=== PATIENT | female | born 2000 | race Caucasian/White ===

== ENCOUNTER 2022-07-06 03:37 | Emergency (ER) | payer BC, SELFPAY ==
[2022-07-06 03:38] VITALS: BP 145/91; PULSE 79; RESP 17; TEMP 36.6; O2SAT 96
[2022-07-06 03:39] VITALS: BP 145/91; PULSE 79; RESP 17; TEMP 36.6; O2SAT 96; BMI 33.7
--- NOTE | 2022-07-06 03:48 | ED.VIS.GI ---
HPI HPI - GI History of Present Illness Chief Complaint: Abd Pain Detail of Chief Complaint: For abdominal pain that awoke patient from sleep Informant: patient Abdominal Pain/Flank Pain Onset: Today and Hours Context: Sudden Onset Timing: Continuous and Waxes and wanes Quality: Aching Location: Epigastric and RUQ Current Severity: Mild Maximum Severity: Severe Worsened by: Food (Patient had pizza test evening.) and Nothing Relieved by: Nothing Nausea/Vomiting/Emesis GI Symptom: Positive for Nausea; Negative for Vomiting Onset: Hours Diarrhea/Melena/Hematochezia GI Symptom: Positive for Diarrhea; Negative for Melena or Hematochezia Onset: Month(s) Stool Quality: Positive for Loose and Watery; Negative for Black or Maroon Severity: Moderate Associated Symptoms Associated Symptoms: Negative for Dysuria, Frequency, Hematuria or Urgency LMP: Approximately 3 weeks ago. Patient is taking control pills Narrative Narrative: Patient is a 22-year-old female who presents with epigastric right upper quadrant pain that radiates through to the intrascapular region that awoke her from sleep. She had pizza last evening. She was seen at outside facility August 2021 and diagnosed with cholelithiasis. Because she had chronic diarrhea she was seen by a rn clinical documentation located in [place]. She underwent colonoscopy because of the diarrhea. No abnormality was noted. She has not been referred to a surgeon regarding the cholelithiasis. She denies fever, chills night sweats. She does report mild nasal congestion. Otherwise no other upper respiratory infectious symptoms. She denies chest discomfort. She denies dysuria, frequency, urgency or hematuria. There is no history of renal or ureteral lithiasis. Prior similar symptoms: Yes Recent Illness/Hospitalization: No PFSH PFSH Medical History no medical history no medical history (There is a history of cholelithiasis) Home Medications hydrocodone-acetaminophen 5-325mg 5mg-325mg 1 tab PO Q6H PRN PRN Pain 3 days #10 TABLETS 07/06/22 [Rx Last Taken Unknown] norgestimate 0.25 mg-ethinyl estradiol 35 mcg tablet (Bel) 1 tab DAILY 07/06/22 [History Last Taken Unknown] Allergy/AdvReac Type Severity Reaction Status Date / Time No Known Allergies Allergy Verified 07/06/22 03:45 Surgical History no surgical history no surgical history Social History (Updated 07/06/22 @ 03:[address] Tenzin Joel MD) household members: significant other Smoking Status: Current some day smoker tobacco type: e-cigarettes alcohol intake: never substance use type: marijuana ROS ROS ED Constitutional Constitutional ED: Denies chills, fever(s), subjective or sweats ENT ENT ED: Denies ear pain, rhinorrhea or sore throat Cardiovascular Cardiovascular: Denies chest pain, palpitations or racing heartbeat Respiratory/Chest Respiratory/Chest: Denies cough, dyspnea or dyspnea on exertion Gastrointestinal Gastrointestinal: Reports abdominal pain and nausea; Denies constipation, diarrhea, melena or vomiting Genitourinary Genitourinary ED: Reports LMP (females 10-50) Details: Comment: (Approximately 3 weeks ago. Patient states she has not missed any of her control doses and has not varied the time by more than 2 hours.); Denies dysuria, hematuria or urinary frequency Musculoskeletal Musculoskeletal: Reports back pain; Denies arthralgias, myalgias or neck pain Integumentary Denies Abrasions or rash Neurologic Neurologic: Denies headache(s), paresthesias or weakness Endocrine Endocrinology: Denies polydipsia, polyphagia or polyuria Hematologic/Lymphatic Hematologic/Lymphatic: Denies easy bleeding, easy bruising or lymphadenopathy EXAM Physical Exam Const Vital Signs: 07/06/22 03:38 07/06/22 03:39 Temperature 97.9 F 97.9 F Temperature Source Temporal Temporal Pulse Rate 79 79 Respiratory Rate 17 17 Blood Pressure 145/91 H 145/91 H Blood Pressure Mean 109 109 Pulse Ox 96 96 Oxygen Delivery Method Room Air Room Air Positive well nourished, well developed and obese; Negative for cachectic, contractures or unkempt General Appearance ED: well developed and NAD; Negative for unkempt, cachectic, contractures or pallor Nutritional Appearance: obese; Negative for cachectic HEENT Reports TM's clear and dry mucous membranes HEENT Narrative: Ears normal. External auditory canal normal. Nares patent. Uvula midline. There is no erythema exudate the posterior pharynx. normocephalic and atraumatic Tympanic Membrane ED: Yes TM's clear Mouth ED: Yes dry mucous membranes Mouth: dry mucous membranes Eyes PERRL and EOMs intact bilaterally General Eye ED: Negative for pale conjunctiva or scleral icterus Neck no lymphadenopathy, supple and no JVD Resp normal respiratory effort and clear to auscultation bilaterally Cardio regular rate, regular rhythm, S1 normal heart sound, S2 normal heart sound and no murmurs GI non-distended and no masses; Negative for non-tender Auscultation: hypoactive bowel sounds Palpation: soft and tender RLQ, McBurney's point and Philip's sign (Philip sign is equivocal.) Back/Spine no CVA tenderness Thoracic Spine / Upper Back: Negative for thoracic spinal tenderness Lumbar Spine / Lower Back: Negative for lumbar spinal tenderness Extremity full ROM General Extremety ED: Negative for edema or tenderness General Extremity: Negative for edema Neuro CN's II-XII intact bilaterally, moves all extremities and no sensory deficits noted Sensorium / Orientation: alert Psych mental status grossly normal and thought process normal Appearance: Negative for unkempt Skin no wounds General Skin Exam: Negative for jaundice or pallor MDM MDM MDM Narrative Medical decision making narrative: With history of cholelithiasis and the fact that she was awakened from sleep with pain rating to her back after having pizza for dinner suspect this is due to biliary colic. She was medicated with IV Toradol and Zofran for her pain and nausea. Blood work was obtained to determine if patient can be discharged to home. Also request for medical records from [facility] was obtained. Patient was reassessed at 0449. Patient does report some improvement. She was informed that her white count has returned is unremarkable. Still awaiting other blood results. Lab Data Attestation: I reviewed the patient's lab results. Lab results narrative: CBC, hepatic and lipase are unremarkable. Patient was referred to surgeon on-call. She was discharged to home with appropriate home-going instructions Labs: Laboratory Results - last 24 hr 07/06/22 07/06/22 03:50 03:50 WBC 8.8 RBC 4.51 Hgb 13.0 Hct 38.5 MCV 85.4 MCH 28.8 MCHC 33.8 RDW Std Deviation 38.5 RDW Coeff of Sharri 12.6 Plt Count 274 MPV 9.8 Immature Gran % (Auto) 0.200 Neut % (Auto) 57.4 Lymph % (Auto) 29.5 [place] % (Auto) 9.1 Eos % (Auto) 3.3 Baso % (Auto) 0.5 Absolute Neuts (auto) 5.1 Absolute Lymphs (auto) 2.60 Nucleated RBC % 0 Total Bilirubin 0.20 Direct Bilirubin < 0.05 AST 14 L ALT 17 Alkaline Phosphatase 70 Total Protein 7.2 Albumin 3.1 L Globulin 4.1 Lipase 132 Discharge Plan Triage Chief Complaint: Abd Pain ED Provider: Tenzin Joel Dx/Rx/DC Orders Clinical Impression: Biliary colic symptom, Cholelithiasis Instructions: ED Gallstones with Biliary Colic Prescriptions: New hydrocodone-acetaminophen [hydrocodone-acetaminophen] 5-325 mg tablet 1 tab PO Q6H PRN PRN (Reason: Pain) 3 Days Qty: 10 0RF No Action norgestimate-ethinyl estradiol [Bel] 0.25-35 mg-mcg tablet 1 tab DAILY Primary Care Provider: Jasmin Harrison Referrals: Torres Miranda MD [Med Staff - Active Staff] - 5-7 Days Jasmin Harrison MD [Primary Care Provider] - Activity Restrictions/Additional Instructions: 1. Call Dr. Torres Cadena's office for follow-up 2. You should not eat greasy or fried foods. Disposition Disposition: Home, Self Care
[2022-07-06] MEDS: Ondansetron 4 MG/2 ML Vial IV (03:57)
[2022-07-06] MEDS: Ketorolac 15 MG/ML Vial IV (03:57)
[2022-07-06] MEDS: 0.9% Normal Saline 1,000 ML 125 ML IV (03:57)
[2022-07-06 04:06] LABS: Absolute Neutrophil Count 5.1 X10^3/uL (2.0-7.7); Basophil# 0.04 X10^3/uL; Basophil% 0.5 % (0-1); Eosinophil# 0.29 X10^3/uL; Eosinophils% 3.3 % (0-5); Hematocrit 38.5 % (37-47); Lymphocyte % 29.5 % (19-41); Mean Corp Hgb Conc 33.8 g/dL (32-36); Mean Corpuscular Hgb 28.8 pg (27.0-32.0); Mean Corpuscular Volume 85.4 fL (81-99); Mean Platelet Vol. 9.8 fl (6.2-12.0); Monocyte% 9.1 % (0-10); NRBC Flagged by Analyzer 0 % (0-5); Neutrophil # 5.07 X10^3/uL (2.7-7.7); Neutrophil % 57.4 % (47-70); Platelet Count 274 K/mm3 (150-450); RBC Distribution Width CV 12.6 % (11.6-14.6); RBC Distribution Width SD 38.5 fl (35.1-43.9); Red Blood Count 4.51 M/mm3 (4.2-5.4); White Blood Count 8.8 K/mm3 (4.4-11.0)
[2022-07-06] MEDS: Morphine 4 MG/ML Syringe IV (05:03)
[2022-07-06 05:04] LABS: AST(SGOT) 14 U/L (15-37); Alanine Aminotransfer ALT/SGPT 17 U/L (13-56); Albumin, Serum 3.1 g/dL (3.2-5.0); Alkaline Phosphatase 70 U/L (45-117); Bilirubin, Direct < 0.05 mg/dL (0.00-0.30); Globulin 4.1 g/dL (2.2-4.2); Lipase 132 U/L (73-393); Protein, Total 7.2 g/dL (6.4-8.2)
[2022-07-06 05:39] VITALS: BP 118/74; PULSE 74; RESP 17; TEMP 36.7; O2SAT 98
== END 2022-07-06 05:40 | disposition home or self-care (01) ==
PROVIDERS: Emergency Provider Emergency Medicine; PCP Pediatrics; Visit Provider Emergency Medicine
DX: K80.70 Calculus of gallbladder and bile duct without cholecystitis without obstruction (principal); R09.81 Nasal congestion; F12.90 Cannabis use, unspecified, uncomplicated; M54.9 Dorsalgia, unspecified; K52.9 Noninfective gastroenteritis and colitis, unspecified; F17.210 Nicotine dependence, cigarettes, uncomplicated
CPT/HCPCS: 80076; 83690; 85025; 96361; 96374; 96375; 99284; J2405

== ENCOUNTER 2022-07-27 09:37 | Day surgery (SDC) | payer BC, SELFPAY ==
[2022-07-27] VITALS (7 sets, daily range): BP systolic 113–134; BP diastolic 66–89; PULSE 60–84; RESP 16; TEMP 36.5–36.8; O2SAT 98–100; BMI 33.2
--- NOTE | 2022-07-27 09:46 | EKG12_ITS ---
Test Reason : PRE-OP Blood Pressure : / mmHG Vent. Rate : 073 BPM Atrial Rate : 073 BPM P-R Int : 128 ms QRS Dur : 080 ms QT Int : 392 ms P-R-T Axes : 024 052 024 degrees QTc Int : 431 ms Normal sinus rhythm with sinus arrhythmia Normal ECG Confirmed by TORI WATKINS, AI ([id number]), material expeditor DAVIDE EDGE ([id number]) on 07/29/2022 8:16:37 AM Referred By: Freddy Burton Confirmed By:AI VALLE MD
[2022-07-27 09:59] LABS: Internal QC Validated? YES +Cl - CLEAR BKGD; Pregnancy, Urine Negative Negative
[2022-07-27] MEDS: Lactated Ringers 1,000 ML 15 ML IV ×2 (10:15→13:01)
--- NOTE | 2022-07-27 10:55 | HP.PCM_ITS ---
History and Physical Date of Service:? 07/08/22 MR#: [id number] Acct: [id number] Name:BUDDY CLEMENTS Rep #: [id number] : 2000 ? ? Provider: Dr. Freddy Burton MD Age/Sex:? 22/F ? ? Location: [facility] Status: Signed Intake Vital Signs ? 07/06/2203:39 07/08/2213:07 Height 5 ft 5 in 5 ft 3 in Weight: 203 lb 0.732 oz 194 lb 4 oz BMI 33.7 34.4 BP 145/91 H 142/99 H Blood Pressure Location ? Rt brachial Position ? Sitting Respiration 17 18 Pulse 79 84 Pulse Source ? Monitor Temp 97.9 F 97.7 F L Temp Source Temporal Temporal Pulse Oximetry (%) 96 100 Oxygen Delivery Method ? room air Intake Visit Reasons:?ED 07/06 POSSIBLE GALLSTONES Chief Complaint: Cholelithiasis Dry Box Tender Required: No Is patient in pain?: No Allergies No Known Allergies Allergy (Verified 07/08/22 13:08) Medications hydrocodone-acetaminophen 5-325mg 5mg-325mg 1 tab PO Q6H PRN PRN Pain 3 days #10 TABLETS 07/06/22 [Rx Confirmed 07/08/22] norgestimate 0.25 mg-ethinyl estradiol 35 mcg tablet (Bel) 1 tab DAILY 07/06/22 [History Confirmed 07/08/22] PFSH Medical History? Abdominal pain Cholelithiasis Diarrhea Surgical History?(Updated 07/08/22 @ 13:05 by Danika Beasley) No history of previous surgery Family History? Mother AsthmaBrother AsthmaGrandmother Arthritis Social History? household members:? significant other Smoking Status:? Current some day smoker tobacco type: e-cigarettes alcohol intake:? never substance use type:? marijuana HPI HPI HPI: BUDDY CARVER, is a 22 F who presents to the office today for who presents with complaints of right upper quadrant pain and known cholelithiasis.? They are referred for surgical consultation from Dr. Joel of emergency medicine.? Patient states that her pain started in August 2021.? She had her first ER visit around [facility] this year.? It was at this visit that she underwent right upper quadrant ultrasound that demonstrated cholelithiasis without other features concerning for cholecystitis.? Pain is described as sharp and occasionally radiates straight through to her back.? She states it is felt almost every day, but with varying intensity.? Additional symptoms include: Associated nausea but no vomiting.? She also denies any associated fever.? She endorses a history of chronic diarrhea, but is not sure if this is related to her right upper quadrant discomfort or not.? In addition to her 2 ER visits, Miss Carver underwent EGD and colonoscopy at outside facility.? She states aside from some small hemorrhoids noted on the colonoscopy both exams were entirely normal.? She also had some part of this work-up included some preprocedural stool studies which detected some inflammation, but were otherwise unrevealing.? With uncontrolled gastroesophageal reflux in the differential, Miss Carver states that she was prescribed Prilosec for several months.? She declares she took this faithfully every day, but did not experience any improvement of her symptoms. ?She describes the scenario around her most recent ER visit here on 07/06/2022; stating that she was awoken out of sleep with pain.? The night prior she co nfirms a dinner of pizza.? She states this was the worst her pain is ever been.? It only improved minimally with pain medications from the ER.? She was advised to refrain from any greasy foods and this seems to have worked to minimize some of her symptoms. Patient has a family history of no significant GI diagnoses, but her mother did require gallbladder removal. ROS General General: No weight change, appetite, fatigue, colon cancer, breast cancer or weakness HEENT HEENT: No difficulty swallowing, eye injury, eye surgery, swollen glands or hoarseness Endo Endocrine: No thyroid disease, diabetes mellitus, thyroid cancer, Hair loss, heat intolerance or cold intolerance Skin Skin: No rash or changing moles Breast Breast: No left breast lump, right breast lump, nipple discharge, breast pain, abnormal mammogram, abnormal US or breast enlargement Musc Musculoskeletal: No back problems, arthritis, rheumatoid arthritis, gout or joint pain Cardio Cardiovascular: No murmur, pacemaker, heart disease, atrial fibrillation, high blood pressure, heart attack, heart stent, palpitations, shortness of breat with exertion or chest pain Psych Psychiatric: No depression, anxiety or hearing voices Resp Respiratory: No shortness of breath, No sleep apnea, No cough, No COPD, No asthma, No emphysema and No wheezing Gastro Gastrointestinal: Yes abdominal pain, Yes nausea or vomiting, Yes diarrhea, No constipation, No blood in stool, Yes acid reflux, Yes hemorrhoids, No ulcers, Yes gallbladder problem and No black,tarry stools Bernardo Hematologic: No blood thinners, No blood disorders, No bleeding, No anemia and No blood clots Neuro Neurologic: No system reviewed and no additional complaints, except as documented, No as per HPI, No abnormal gait, No abnormal hearing, No abnormal movements, No abnormal speech, No behavioral changes, No burning sensations, No confusion, No convulsions, No disequilibrium, No dizziness, No localized weakness, No frequent falls, No headache(s), No lack of coordination, No loss of vision, No memory loss, No numbness, No other visual disturbances, No radicular pain, No restless legs, No sensory deficit, No syncope, No tingling, No tremor(s), No weakness and No other Exam Const General: cooperative, healthy appearing, comfortable and no acute distress Nutritional Appearance: well nourished Orientation: alert, awake and oriented x3 Resp Effort & Inspection: normal respiratory effort Auscultation: clear to auscultation bilaterally, no rales, no rhonchi and no wheezes Cardio Rate: regular rate Rhythm: regular rhythm Heart Sounds: S1 normal and S2 normal GI Inspection: non-distended and no scars Palpation: soft, no hernias and tender in the epigastrum and in the RUQ; Philip's sign negative Assessment and Plan Assessment and Plan (1) Biliary colic symptom: ?Status:?Acute ?Comment: This is a 22-year-old, otherwise healthy, female who presents with a nearly 1 year history of chronic right upper quadrant pain that is occasionally associated with nausea.? She has undergone negative work-ups for gastroesophageal reflux disease and colonoscopy for chronic diarrhea?both without relief of her symptoms.? Further, she has been on medications to help regulate her acid production and diarrhea and neither of these have helped.? She relates that her pain primarily begins early in the mornings, but is unable to articulate if there are any trigger foods.? On exam her pain is primarily in the epigastrium, but there is some discomfort in the right upper quadrant as well.? Given the regional distribution of her pain on exam, and her somewhat vague history, I have shared with her that I am not fully convinced that removal of her gallbladder will ameliorate her symptoms.? I have shared with her (as she states has been shared with her previously) that this differential also includes irritable bowel syndrome.? Still, given that she has undergone unrevealing examinations with endoscopy and had refractory symptoms to standard medications I find it reasonable to pursue cholecystectomy.? I have cautioned her that removal of the gallbladder could lead to worsening of her diarrheal complaints?at least in a transitory fashion.? At this point, patient is inclined to pursue surgery as she is frustrated with the lack of progress she has had thus far.? Therefore we will plan for minimally invasive cholecystectomy with possible plan geography at first mutually available date.? Patient has been advised to plan for a outpatient procedure and postoperative expectations were reviewed as well. ?Plan: ? Minimally invasive cholecystectomy with possible cholangiography at first mutually available date (2) Cholelithiasis: ?Status:?Acute ?Comment: Patient with symptomatic cholelithiasis per history and exam. ?Plan: ? As above, pursuing noninvasive cholecystectomy with possible cholangiography at first mutual available date. I have re-examined the patient. There are no clinical changes since date of exam. Plan to proceed with laparoscopic cholecystectomy under general anesthesia as stated above. Postoperative expectations/restrictions were reviewed with patient and her significant other in detail. They expressed understanding and acceptance of this information.
[2022-07-27 10:57] LABS: ALB/GLOB Ratio 0.9 RATIO (0.9-2.4); AST(SGOT) 14 U/L (15-37); Alanine Aminotransfer ALT/SGPT 17 U/L (13-56); Albumin, Serum 3.2 g/dL (3.2-5.0); Alkaline Phosphatase 54 U/L (45-117); Anion Gap 5 (5-15); BUN 7 mg/dL (7-18); BUN/Creat Ratio 11.3 RATIO (10-20); Calcium,Total 8.5 mg/dL (8.5-10.1); Chloride 113 mmol/L (98-107); Creatinine, Serum 0.62 mg/dL (0.55-1.02); EST Glomerular Filtration Rate 130 mL/min (>60); Est Glom Filt Rate - Afr Amer 157 mL/min (>60); Estimated Creatinine Clearance 119.73 ml/min; Globulin 3.6 g/dL (2.2-4.2); Glucose 84 mg/dL (74-106); Potassium 3.6 mmol/L (3.5-5.1); Protein, Total 6.8 g/dL (6.4-8.2); Sodium Level 142 mmol/L (136-145)
[2022-07-27] MEDS: Cefazolin 2 GM in 0.9% Normal Saline 100 ML IV (10:57)
--- NOTE | 2022-07-27 11:00 | GALL_PTH ---
PATIENT: BUDDY MAHMOOD [place] [facility] [id number] AGE/SX: 22/F ROOM: RE07/27/[address]: Dr. Freddy Burton MD : 2000 BED: DIS: 07/27/2022 SPEC #: [id number] RECD: 07/27/22 12:59 STATUS: PIETRO MERRILL #: [id number] LAKESHIA: 07/27/22 11:[address]: Freddy Burton DEPT: SURGICAL PATHOLOGY RECD BY: Maxi Winston ENTERED: 07/28/22 08:10 SP TYPE: KEYONA MALLOY DR: Dr. Jasmin Harrison MD Tissues: Gallbladder, NOS Procedures: Surgery Specimen Level III HEADER OPERATION: Laparoscopic cholecystectomy PRE-OP DIAGNOSIS: Biliary colic symptom, cholelithiasis TISSUE SUBMITTED: Gallbladder MICROSCOPIC DIAGNOSIS Gallbladder, cholecystectomy: Cholesterolosis, chronic cholecystitis and cholelithiasis. AM:cece 07/29/2022 MICROSCOPIC DESCRIPTION Slides are reviewed. GROSS DESCRIPTION Received is one container labeled with the patient's name and designated gallbladder. The specimen consists of a gallbladder measuring 11 x 3 x 3 cm. The external surface is smooth and glistening. Focally, it is granular, hemorrhagic and contains cautery artifact. The lumen of the gallbladder contains green mucoid bile and multiple chalky, yellow, mulberry-shaped calculi averaging 1.5 cm in greatest dimension. The mucosa is bile-stained and without any mass lesions. The gallbladder wall averages 0.2 cm in thickness and is free of mass lesions. Upper Cutter sections of the gallbladder and the cystic duct at margin of resection are submitted in one cassette. / AM:cece 07/28/2022 TC:3 CPT: 90666
[2022-07-27] MEDS: Bupivacaine 0.25% 30 ML Vial (11:19)
--- NOTE | 2022-07-27 12:19 | OP.PCM_ITS ---
Report of Operation Date of Procedure: 07/27/22 Pre-Operative Diagnosis: Somatic cholelithiasis/biliary colic Post-Operative Diagnosis: Same Surgery/Procedure Performed:: Laparoscopic cholecystectomy Description of Surgical Findings:: ? Gallbladder with normal anatomy including single cystic duct and cystic artery ? Minimal inflammatory change to the gallbladder approaching the infundibulum Surgeon: Freddy Burton recyclable materials distributor: Anne-Marie Riley Type of Anesthesia: General/Supplemental Anesthesiologist: Ruiz Velazquez Specimen's removed: Gallbladder Estimated Blood Loss (mL): 20 Description of Procedure: After proper identification in the preoperative holding area the patient was brought to the operating room where positioned supine on the operating room table. Preoperatively SCDs and antibiotics were administered. General anesthesia was then induced. Patient's abdomen was prepped and draped in usual sterile fashion. A formal timeout was conducted to confirm both patient and the procedure. Procedure was begun with a supraumbilical incision which was extended deeply down to the level of the fascia. The fascia was elevated and incised, as well as the peritoneum. A finger sweep was performed to ensure there were no underlying adhesions and a 12 mm balloon trocar was inserted. Pneumoperitoneum was established at 15 mmHg. 3 additional trocars were placed in the epigastrium and in the right upper quadrant (3 x 5 mm). Inspection of the peritoneum revealed no inadvertent injury to the viscera below. The gallbladder was visualized with minimal inflammation approaching the gallbladder infundibulum. The gallbladder fundus was then grasped and elevated cephalad. Then, using careful dissection the peritoneum was opened and the structures of the hepatocystic triangle were delineated. Once the critical view of safety was obtained, the cystic duct was triply clipped and sharply divided. The same process was used for the cystic artery. The gallbladder was then removed from the gallbladder fossa with the use of electrocautery. Selective electrocautery was used to obtain hemostasis in the gallbladder fossa. The gallbladder was placed in an Endo Catch bag and removed from the peritoneum. Morison's pouch was irrigated and the effluent was suctioned free of the peritoneum. Hemostasis was again confirmed. Pneumoperitoneum was evacuated and the fascia of the 12 mm port sites was closed with #1Vicryl in a [id number] fashion. A total of 30 mL of 0.25% bupivacaine plain anesthetic was injected at the port sites for postoperative pain control. The skin of each port site was then closed in subcuticular fashion using 4-0 Monocryl. Steri-Strips and bandages were applied as dressings. Patient tolerated the procedure well without any apparent complications. On emergence from their anesthetic the patient was taken to PACU for ongoing recovery. Complications None Admit VTE Documentation VTE Mechan Device Prophylaxis: SCD's Procedures Digestive 40xxx-49xxx: 08866 Laparoscopic cholecystectomy
--- NOTE | 2022-07-27 12:25 | DCINST_ITS ---
Discharge Instructions Diet Discharge Diet: No restrictions Activity Discharge Activity: May Not Drive (No driving while using narcotic pain medication) and May Shower (Postoperative day 1) May shower in (days): 1 Ice area for (Minutes): 20 Lifting Restrictions: No lifting greater than 15 pounds for 2 weeks after surgery Dressing / Incision Call your doctor if your incision/area has: Continuous Slow Oozing, Increased Pain/ Swelling, Increased Redness, Foul Smelling Discharge and Swelling at the incision site Call your doctor if you observe: Fever of 101 or Higher Remove Dressing in: 1 day (Please leave Steri-Strips intact until they fall off spontaneously or are taken off at your follow-up visit) Cleanse incision/area with: Soap & Water Follow Up Care Please Follow Up With: Freddy Burton MD When: 7-10days postop Test Results: Test results from this visit will be discussed in further detail at your follow- up appointment, if applicable. Discharge Plan Admission Primary Reason for Your Visit: Removal of gallbladder Attending Provider: Freddy Burton Primary Care Provider: Jasmin Harrison Discharge Orders/Prescriptions Prescriptions: New oxycodone 5 mg capsule 5 mg PO Q6H PRN (Reason: pain) 5 Days Qty: 14 0RF Continued norgestimate-ethinyl estradiol [Bel] 0.25-35 mg-mcg tablet 1 tab PO DAILY Referrals / Follow Up: Jasmin Harrison MD [Primary Care Provider] - Disposition Disposition (needs filled in before D/C Order can be placed): Home, Self Care
[2022-07-27] MEDS: oxyCODONE 5 MG Tablet PO (14:30)
== END 2022-07-27 15:27 | disposition home or self-care (01) ==
LOC: SDC 09:38 → AC 09:39
PROVIDERS: Anesthesiology; PCP Pediatrics; Referring Provider Surgery; Visit Provider Surgery
PROC: (CPT 47610; principal; 2022-07-27 10:40)
DX: K81.1 Chronic cholecystitis (principal); R19.7 Diarrhea, unspecified; F17.210 Nicotine dependence, cigarettes, uncomplicated; K21.9 Gastro-esophageal reflux disease without esophagitis; F12.90 Cannabis use, unspecified, uncomplicated
CPT/HCPCS: 47562; 00790; 80053; 81025; 88304; 93005; J7120; J2405